=== PATIENT | female | born 1950 | race Caucasian/White ===

== ENCOUNTER → 2017-01-14 | Outpatient (CLI) | payer MEDICARE, OTHER ==
[~2017-01-14] MED LIST: METFORMIN1000 MG PO; MULTI VITAMINS1 TAB PO; SIMVASTATIN20 MG PO; TENORMIN25 M1 PO; TRAD5TAB1 PO
== END | disposition home or self-care (01) ==
LOC: RAD 11:52
DX: M25.562 Pain in left knee (principal)

== ENCOUNTER → 2017-03-05 | Outpatient (CLI) | payer MEDICARE, OTHER ==
[2017-03-05 11:47] LABS: BASO % 0.5 % (0.0-1.0); EOS % 0.5 % (1.0-4.0); HEMATOCRIT 43.6 % (37.0-47.0); HEMOGLOBIN 14.6 g/dl (12.0-16.0); LYMPH % 25.8 % (27.0-41.0); MEAN CELL VOLUME 84.2 fl (81.0-99.0); MEAN CORPUSCULAR HGB 28.2 pg (27.0-31.0); MEAN CORPUSCULAR HGB CONC 33.5 g/dl (33.0-37.0); MEAN PLATELET VOLUME 10.3 fl (9.6-12.3); MONO # 0.6 10*3/uL (0.1-1.0); MONO % 7.6 % (3.0-9.0); NEUT # 5.1 10*3/uL (2.3-7.9); NEUT % 65.3 % (47.0-73.0); PLATELET COUNT AUTOMATED 240 10*3/uL (130-400); RED BLOOD COUNT 5.18 10*6/uL (4.10-5.10); RED CELL DISTRI WIDTH 13.1 % (0-14.5); WHITE BLOOD COUNT 7.9 10*3/uL (4.8-10.8)
== END | disposition home or self-care (01) ==
LOC: LAB 11:19
PROVIDERS: Family Medicine
DX: I10 Essential (primary) hypertension (principal)

== ENCOUNTER → 2018-04-22 | Outpatient (CLI) | payer MEDICARE, OTHER ==
[2018-04-22 12:11] LABS: ALBUMIN 3.9 gm/dl (3.1-4.5); ALKALINE PHOSPHATASE 105 U/L (45-117); BUN 16 mg/dl (7-24); CHLORIDE 106 mmol/L (98-107); CHOLESTEROL 122 mg/dL (<200); CREATININE 0.81 mg/dL (0.55-1.02); FREE T4 1.15 ng/dl (0.76-1.46); HDL CHOLESTEROL 48 mg/dl (40-60); LDL CHOLESTEROL 47 mg/dL (9-159); POTASSIUM 3.8 mmol/L (3.5-5.1); SGOT/AST 59 IU/L (3-35); SGPT/ALT 72 U/L (12-78); SODIUM 139 mmol/L (136-145); TOTAL PROTEIN 7.4 gm/dL (6.4-8.2); TRIGLYCERIDES 136 mg/dl (<150); VLDL CHOLESTEROL 27 mg/dL (6-40)
[2018-04-22 12:28] LABS: BASO % 0.3 % (0.0-1.0); EOS % 0.5 % (1.0-4.0); HEMATOCRIT 40.2 % (37.0-47.0); HEMOGLOBIN 13.2 g/dl (12.0-16.0); LYMPH # 1.6 10*3/uL (1.3-4.4); LYMPH % 26.7 % (27.0-41.0); MEAN CORPUSCULAR HGB 28.6 pg (27.0-31.0); MEAN CORPUSCULAR HGB CONC 32.8 g/dl (33.0-37.0); MONO # 0.5 10*3/uL (0.1-1.0); MONO % 8.3 % (3.0-9.0); NEUT # 3.9 10*3/uL (2.3-7.9); NEUT % 63.7 % (47.0-73.0); PLATELET COUNT AUTOMATED 155 10*3/uL (130-400); RED BLOOD COUNT 4.62 10*6/uL (4.10-5.10); RED CELL DISTRI WIDTH 12.1 % (0-14.5)
== END | disposition home or self-care (01) ==
LOC: LAB 11:20
PROVIDERS: Family Medicine
DX: I10 Essential (primary) hypertension (principal); E11.9 Type 2 diabetes mellitus without complications; E78.5 Hyperlipidemia, unspecified; E55.9 Vitamin D deficiency, unspecified

== ENCOUNTER → 2018-09-19 | Outpatient (CLI) | payer MEDICARE, OTHER ==
[2018-09-19 18:21] LABS: BASO % 0.6 % (0.0-1.0); EOS # 0.1 10*3/uL (0.0-0.4); EOS % 0.9 % (1.0-4.0); LYMPH % 30.2 % (27.0-41.0); MEAN CELL VOLUME 86.1 fl (81.0-99.0); MEAN CORPUSCULAR HGB 28.7 pg (27.0-31.0); MEAN CORPUSCULAR HGB CONC 33.3 g/dl (33.0-37.0); MEAN PLATELET VOLUME 10.7 fl (9.6-12.3); MONO # 0.5 10*3/uL (0.1-1.0); MONO % 7.9 % (3.0-9.0); NEUT # 3.9 10*3/uL (2.3-7.9); NEUT % 60.1 % (47.0-73.0); PLATELET COUNT AUTOMATED 174 10*3/uL (130-400); RED BLOOD COUNT 4.53 10*6/uL (4.10-5.10); RED CELL DISTRI WIDTH 12.6 % (0-14.5); WHITE BLOOD COUNT 6.5 10*3/uL (4.8-10.8)
[2018-09-20 06:08] LABS: HEPATITIS B SURFACE AG Negative (Negative); HEPATITIS C VIRUS ANTIBODY <0.1 s/co (0.0-0.9)
[2018-09-20 08:14] LABS: RHEUMATOID ARTHRITIS FACTOR <10.0 IU/mL (0.0-13.9)
[2018-09-20 14:11] LABS: ANTI-RNP ANTIBODIES <0.2 AI (0.0-0.9)
[2018-09-20 22:07] LABS: CCP ANTIBODIES IGG/IGA 7 units (0-19)
[2018-09-21 00:05] LABS: LUPUS DRVVT 40.3 sec (0.0-47.0); LUPUS REFLEX INTERPRETATION Comment: (.); PTT-LA 33.4 sec (0.0-51.9)
[2018-09-23 16:10] LABS: HLA-B27 ANTIGEN Negative (.)
== END | disposition home or self-care (01) ==
LOC: LAB 16:54
PROVIDERS: Orthopaedic Surgery
DX: M25.50 Pain in unspecified joint (principal)

== ENCOUNTER → 2019-10-03 | Outpatient (CLI) | payer MEDICARE, OTHER | END | disposition home or self-care (01) | LOC: RAD 09:20 | DX: M40.47 Postural lordosis, lumbosacral region (principal); M25.552 Pain in left hip; M25.551 Pain in right hip ==

== ENCOUNTER → 2019-12-12 | Outpatient (CLI) | payer MEDICARE, OTHER ==
[~2019-12-12] MED LIST changes: +AMOXICILLIN500 M2 PO; +GOOD NEIGHBOR M25 M1 PO
[2019-12-12 16:46] LABS: BILIRUBIN NEGATIVE (NEGATIVE); CLARITY CLEAR (CLEAR); COLOR YELLOW (YELLOW); GLUCOSE NEGATIVE (NEGATIVE); KETONE TRACE (NEGATIVE); SPECIFIC GRAVITY 1.005 (1.005-1.030)
[2019-12-12 16:47] LABS: BASO % 0.6 % (0.0-1.0); BLOOD NEGATIVE (NEGATIVE); EOS # 0.1 10*3/uL (0.0-0.4); EOS % 1.5 % (1.0-4.0); HEMATOCRIT 41.3 % (37.0-47.0); HEMOGLOBIN 13.7 g/dl (12.0-16.0); LEUKO ESTERASE NEGATIVE (NEGATIVE); LYMPH # 1.7 10*3/uL (1.3-4.4); LYMPH % 25.3 % (27.0-41.0); MEAN CELL VOLUME 85.5 fl (81.0-99.0); MEAN CORPUSCULAR HGB 28.4 pg (27.0-31.0); MEAN CORPUSCULAR HGB CONC 33.2 g/dl (33.0-37.0); MEAN PLATELET VOLUME 10.2 fl (9.6-12.3); MONO # 0.5 10*3/uL (0.1-1.0); MONO % 8.1 % (3.0-9.0); NEUT # 4.2 10*3/uL (2.3-7.9); NEUT % 64.2 % (47.0-73.0); NITRITE NEGATIVE (NEGATIVE); PLATELET COUNT AUTOMATED 167 10*3/uL (130-400); RED BLOOD COUNT 4.83 10*6/uL (4.10-5.10); RED CELL DISTRI WIDTH 12.6 % (0-14.5); UROBILINOGEN 0.2 E.U./dl (0.2-1.0); WHITE BLOOD COUNT 6.5 10*3/uL (4.8-10.8)
[2019-12-12 16:57] LABS: BACTERIA TRACE; RBC 0-2 rbc/hpf (0-2)
[2019-12-12 16:58] LABS: ACT PARTIAL THROMBO TIME 25.3 SECONDS (20.0-32.1); INTERNATIONAL NORM RATIO 0.9 (2.0-3.5)
[2019-12-12 17:04] LABS: ALBUMIN 4.1 gm/dl (3.1-4.5); ALKALINE PHOSPHATASE 162 U/L (45-117); BUN 20 mg/dl (7-24); CHLORIDE 103 mmol/L (98-107); SGOT/AST 47 IU/L (3-35); SGPT/ALT 72 U/L (12-78); SODIUM 137 mmol/L (136-145); TOTAL PROTEIN 7.7 gm/dL (6.4-8.2)
== END | disposition home or self-care (01) ==
LOC: LAB 16:25
PROVIDERS: Orthopaedic Surgery
DX: I10 Essential (primary) hypertension (principal); E11.9 Type 2 diabetes mellitus without complications; M19.90 Unspecified osteoarthritis, unspecified site; M79.89 Other specified soft tissue disorders

== ENCOUNTER 2019-12-16 06:12 | Emergency (ER) | payer MEDICARE, OTHER ==
[~2019-12-16] VITALS: Ht 152.4 cm; Wt 73.5 kg
[~2019-12-16 06:12] MED LIST changes: -AMOXICILLIN500 M2 PO; -GOOD NEIGHBOR M25 M1 PO
[2019-12-16 07:39] LABS: BASO % 0.4 % (0.0-1.0); EOS # 0.1 10*3/uL (0.0-0.4); EOS % 0.9 % (1.0-4.0); HEMATOCRIT 42.3 % (37.0-47.0); HEMOGLOBIN 14.1 g/dl (12.0-16.0); LYMPH # 1.5 10*3/uL (1.3-4.4); LYMPH % 22.1 % (27.0-41.0); MEAN CELL VOLUME 84.9 fl (81.0-99.0); MEAN CORPUSCULAR HGB 28.3 pg (27.0-31.0); MEAN CORPUSCULAR HGB CONC 33.3 g/dl (33.0-37.0); MEAN PLATELET VOLUME 10.6 fl (9.6-12.3); MONO # 0.5 10*3/uL (0.1-1.0); MONO % 7.4 % (3.0-9.0); NEUT # 4.8 10*3/uL (2.3-7.9); NEUT % 69.1 % (47.0-73.0); PLATELET COUNT AUTOMATED 165 10*3/uL (130-400); RED BLOOD COUNT 4.98 10*6/uL (4.10-5.10); RED CELL DISTRI WIDTH 12.6 % (0-14.5); WHITE BLOOD COUNT 6.9 10*3/uL (4.8-10.8)
[2019-12-16 08:01] LABS: ALBUMIN 3.9 gm/dl (3.1-4.5); ALKALINE PHOSPHATASE 143 U/L (45-117); BUN 17 mg/dl (7-24); CHLORIDE 107 mmol/L (98-107); CREATININE 0.92 mg/dL (0.55-1.02); POTASSIUM 4.1 mmol/L (3.5-5.1); SGOT/AST 60 IU/L (3-35); SGPT/ALT 77 U/L (12-78); SODIUM 139 mmol/L (136-145); TOTAL PROTEIN 7.2 gm/dL (6.4-8.2)
[2019-12-16 08:03] LABS: ACT PARTIAL THROMBO TIME 23.3 SECONDS (20.0-32.1)
[2019-12-16 10:35] VITALS: BP 153/58
[2019-12-16] MEDS ORDERED: GOOD NEIGHBOR M25 M1 PO (12:10)
[2019-12-16] MEDS ORDERED: AMOXICILLIN500 M2 PO (12:10)
== END 2019-12-16 12:15 | disposition home or self-care (01) ==
LOC: ED 06:12
PROVIDERS: Emergency Medicine Emergency Medical Services
DX: H83.09 Labyrinthitis, unspecified ear (principal); J32.9 Chronic sinusitis, unspecified; Z88.2 Allergy status to sulfonamides; Z79.4 Long term (current) use of insulin; Z79.899 Other long term (current) drug therapy

== ENCOUNTER → 2020-04-18 | Outpatient (CLI) | payer MEDICARE, OTHER ==
[~2020-04-18] MED LIST changes: +AMOXICILLIN500 M2 PO; +GOOD NEIGHBOR M25 M1 PO
[2020-04-18 13:43] LABS: BASO % 0.4 % (0.0-1.0); EOS # 0.1 10*3/uL (0.0-0.4); EOS % 1.3 % (1.0-4.0); HEMATOCRIT 38.7 % (37.0-47.0); LYMPH # 1.5 10*3/uL (1.3-4.4); LYMPH % 29.2 % (27.0-41.0); MEAN CELL VOLUME 86.8 fl (81.0-99.0); MEAN CORPUSCULAR HGB 28.5 pg (27.0-31.0); MEAN CORPUSCULAR HGB CONC 32.8 g/dl (33.0-37.0); MEAN PLATELET VOLUME 10.7 fl (9.6-12.3); MONO # 0.5 10*3/uL (0.1-1.0); MONO % 8.6 % (3.0-9.0); NEUT # 3.2 10*3/uL (2.3-7.9); NEUT % 60.1 % (47.0-73.0); PLATELET COUNT AUTOMATED 127 10*3/uL (130-400); RED BLOOD COUNT 4.46 10*6/uL (4.10-5.10); RED CELL DISTRI WIDTH 12.9 % (0-14.5); WHITE BLOOD COUNT 5.2 10*3/uL (4.8-10.8)
[2020-04-18 14:10] LABS: ALBUMIN 3.4 gm/dl (3.1-4.5); ALKALINE PHOSPHATASE 134 U/L (45-117); BUN 18 mg/dl (7-24); CHLORIDE 110 mmol/L (98-107); CREATININE 1.03 mg/dL (0.55-1.02); SGOT/AST 58 IU/L (3-35); SGPT/ALT 70 U/L (12-78); SODIUM 141 mmol/L (136-145); TOTAL PROTEIN 6.7 gm/dL (6.4-8.2)
== END | disposition home or self-care (01) ==
LOC: LAB 12:53 → CARD 13:00
PROVIDERS: Family Medicine
DX: I25.10 Atherosclerotic heart disease of native coronary artery without angina pectoris (principal); H49.02 Third [oculomotor] nerve palsy, left eye; E11.9 Type 2 diabetes mellitus without complications; Z96.1 Presence of intraocular lens

== ENCOUNTER → 2020-05-09 | Outpatient (CLI) | payer MEDICARE, OTHER ==
[2020-05-09 14:16] LABS: BILIRUBIN NEGATIVE (NEGATIVE); BLOOD NEGATIVE (NEGATIVE); CLARITY SL CLOUDY (CLEAR); COLOR YELLOW (YELLOW); GLUCOSE NEGATIVE (NEGATIVE); KETONE NEGATIVE (NEGATIVE); LEUKO ESTERASE NEGATIVE (NEGATIVE); NITRITE NEGATIVE (NEGATIVE); UROBILINOGEN 0.2 E.U./dl (0.2-1.0)
[2020-05-09 14:38] LABS: BACTERIA 1+; MUCOUS 1+; WBC 0-2 wbc/hpf (0-5)
[2020-05-09 14:49] LABS: ALBUMIN 3.8 gm/dl (3.1-4.5); ALKALINE PHOSPHATASE 115 U/L (45-117); BUN 17 mg/dl (7-24); CHLORIDE 107 mmol/L (98-107); CREATININE 0.93 mg/dL (0.55-1.02); POTASSIUM 3.9 mmol/L (3.5-5.1); SGOT/AST 53 IU/L (3-35); SGPT/ALT 67 U/L (12-78); SODIUM 139 mmol/L (136-145); TOTAL PROTEIN 7.2 gm/dL (6.4-8.2)
[2020-05-10 10:07] LABS: CREATININE,URINE 83.6 mg/dL (Not Estab.)
== END | disposition home or self-care (01) ==
LOC: US 05-03 13:30 → LAB 13:19 → US 13:30
PROVIDERS: Internal Medicine Nephrology
DX: N18.3 Chronic kidney disease, stage 3 (moderate) (principal)

== ENCOUNTER → 2020-08-14 | Outpatient (CLI) | payer MEDICARE, OTHER ==
[2020-08-14 10:33] LABS: BASO % 0.5 % (0.0-1.0); EOS # 0.1 10*3/uL (0.0-0.4); EOS % 1.1 % (1.0-4.0); HEMATOCRIT 45.6 % (37.0-47.0); LYMPH # 1.8 10*3/uL (1.3-4.4); LYMPH % 32.1 % (27.0-41.0); MEAN CELL VOLUME 85.2 fl (81.0-99.0); MEAN CORPUSCULAR HGB CONC 32.9 g/dl (33.0-37.0); MEAN PLATELET VOLUME 10.7 fl (9.6-12.3); MONO # 0.5 10*3/uL (0.1-1.0); MONO % 8.5 % (3.0-9.0); NEUT # 3.3 10*3/uL (2.3-7.9); NEUT % 57.6 % (47.0-73.0); PLATELET COUNT AUTOMATED 127 10*3/uL (130-400); RED BLOOD COUNT 5.35 10*6/uL (4.10-5.10); RED CELL DISTRI WIDTH 12.8 % (0-14.5); WHITE BLOOD COUNT 5.7 10*3/uL (4.8-10.8)
[2020-08-14 10:57] LABS: ALBUMIN 3.8 gm/dl (3.1-4.5); BUN 14 mg/dl (7-24); CHLORIDE 105 mmol/L (98-107); POTASSIUM 4.1 mmol/L (3.5-5.1); SODIUM 139 mmol/L (136-145)
[2020-08-14 11:04] LABS: ALKALINE PHOSPHATASE 128 U/L (45-117); CHOLESTEROL 164 mg/dL (<200); CREATININE 0.99 mg/dL (0.55-1.02); FREE T4 1.09 ng/dl (0.76-1.46); HDL CHOLESTEROL 55 mg/dl (40-60); LDL CHOLESTEROL 73 mg/dL (9-159); SGOT/AST 54 IU/L (3-35); SGPT/ALT 60 U/L (12-78); TRIGLYCERIDES 178 mg/dl (<150); VLDL CHOLESTEROL 36 mg/dL (6-40)
== END | disposition home or self-care (01) ==
LOC: LAB 09:53 → MAMMO 10:30
PROVIDERS: ATTEND Family Medicine
DX: Z12.11 Encounter for screening for malignant neoplasm of colon (principal); Z12.31 Encounter for screening mammogram for malignant neoplasm of breast; I10 Essential (primary) hypertension; E78.5 Hyperlipidemia, unspecified; E11.9 Type 2 diabetes mellitus without complications

== ENCOUNTER → 2021-06-12 | Outpatient (CLI) | payer MEDICARE, OTHER | END | disposition home or self-care (01) | LOC: RESCLI 00:42 | PROVIDERS: ATTEND Internal Medicine | DX: E11.9 Type 2 diabetes mellitus without complications (principal); I10 Essential (primary) hypertension; E78.5 Hyperlipidemia, unspecified; L40.50 Arthropathic psoriasis, unspecified; Z79.4 Long term (current) use of insulin; Z79.899 Other long term (current) drug therapy; Z88.0 Allergy status to penicillin; Z98.51 Tubal ligation status ==

== ENCOUNTER → 2021-09-03 | Outpatient (CLI) | payer MEDICARE, OTHER | END | disposition home or self-care (01) | LOC: MAMMO 00:28 | PROVIDERS: ATTEND Family Medicine | DX: Z12.31 Encounter for screening mammogram for malignant neoplasm of breast (principal) ==

== ENCOUNTER → 2021-09-08 | Outpatient (CLI) | payer MEDICARE, OTHER ==
[2021-09-08 09:15] LABS: BASO % 0.6 % (0.0-1.0); BILIRUBIN 1+ (Negative); BLOOD Negative (Negative); CLARITY Cloudy (Clear); COLOR Dark Yellow (Yellow); EOS # 0.1 10*3/uL (0.0-0.4); EOS % 1.3 % (1.0-4.0); GLUCOSE Negative (Negative); HEMATOCRIT 42.8 % (37.0-47.0); KETONE Trace (Negative); LEUKO ESTERASE 2+ (Negative); LYMPH % 32.2 % (27.0-41.0); MEAN CELL VOLUME 85.6 fl (81.0-99.0); MEAN CORPUSCULAR HGB CONC 33.9 g/dl (33.0-37.0); MEAN PLATELET VOLUME 10.2 fl (9.6-12.3); MONO # 0.6 10*3/uL (0.1-1.0); MONO % 9.4 % (3.0-9.0); NEUT # 3.5 10*3/uL (2.3-7.9); NEUT % 56.3 % (47.0-73.0); NITRITE Negative (Negative); PLATELET COUNT AUTOMATED 168 10*3/uL (130-400); RED CELL DISTRI WIDTH 12.8 % (0-14.5); SPECIFIC GRAVITY 1.025 (1.001-1.030); WHITE BLOOD COUNT 6.3 10*3/uL (4.8-10.8)
[2021-09-08 09:32] LABS: ALBUMIN 3.5 gm/dl (3.1-4.5); BUN 13 mg/dl (7-24); CHLORIDE 107 mmol/L (98-107); POTASSIUM 3.9 mmol/L (3.5-5.1); SODIUM 137 mmol/L (136-145)
[2021-09-08 09:35] LABS: BACTERIA TRACE; MUCOUS 1+; WBC 31-40 wbc/hpf (0-5)
[2021-09-08 09:36] LABS: ALKALINE PHOSPHATASE 84 U/L (45-117); CREATININE 0.89 mg/dL (0.55-1.02); SGOT/AST 42 IU/L (3-35); SGPT/ALT 51 U/L (12-78); TOTAL PROTEIN 7.3 gm/dL (6.4-8.2)
== END | disposition home or self-care (01) ==
LOC: LAB 08:41
PROVIDERS: Student in an Organized Health Care Education/Training Program; ATTEND Internal Medicine
DX: E11.65 Type 2 diabetes mellitus with hyperglycemia (principal); E78.5 Hyperlipidemia, unspecified; E55.9 Vitamin D deficiency, unspecified

== ENCOUNTER → 2021-11-12 | Outpatient (CLI) | payer MEDICARE, OTHER | END | disposition home or self-care (01) | LOC: RESCLI 00:34 | PROVIDERS: ATTEND Internal Medicine | DX: E11.9 Type 2 diabetes mellitus without complications (principal); I10 Essential (primary) hypertension; E78.5 Hyperlipidemia, unspecified; L40.50 Arthropathic psoriasis, unspecified; Z13.820 Encounter for screening for osteoporosis; Z79.899 Other long term (current) drug therapy; Z98.890 Other specified postprocedural states; Z88.5 Allergy status to narcotic agent ==

== ENCOUNTER → 2021-11-27 | Outpatient (CLI) | payer MEDICARE, OTHER | END | disposition home or self-care (01) | LOC: RAD 13:05 | PROVIDERS: ATTEND Internal Medicine | DX: Z13.820 Encounter for screening for osteoporosis (principal); M85.88 Other specified disorders of bone density and structure, other site ==

== ENCOUNTER → 2021-12-10 | Outpatient (CLI) | payer MEDICARE, OTHER | END | disposition home or self-care (01) | LOC: RESCLI 06:47 | PROVIDERS: ATTEND Student in an Organized Health Care Education/Training Program | DX: H00.012 Hordeolum externum right lower eyelid (principal); I10 Essential (primary) hypertension; E11.9 Type 2 diabetes mellitus without complications; E78.00 Pure hypercholesterolemia, unspecified; Z98.890 Other specified postprocedural states; Z88.2 Allergy status to sulfonamides; Z79.899 Other long term (current) drug therapy ==

== ENCOUNTER → 2022-02-03 | Outpatient (CLI) | payer MEDICARE, OTHER ==
[2022-02-03 09:38] LABS: BILIRUBIN Negative (Negative); BLOOD Negative (Negative); CLARITY Clear (Clear); COLOR Yellow (Yellow); GLUCOSE 3+ (Negative); KETONE Trace (Negative); LEUKO ESTERASE Negative (Negative); NITRITE Negative (Negative); SPECIFIC GRAVITY >= 1.030 (1.001-1.030)
[2022-02-03 09:57] LABS: ALKALINE PHOSPHATASE 86 U/L (45-117); BUN 18 mg/dl (7-24); CHLORIDE 107 mmol/L (98-107); CHOLESTEROL 142 mg/dL (<200); CREATININE 0.87 mg/dL (0.55-1.02); LDL CHOLESTEROL 60 mg/dL (9-159); POTASSIUM 3.9 mmol/L (3.5-5.1); SGOT/AST 32 IU/L (3-35); SGPT/ALT 39 U/L (12-78); SODIUM 139 mmol/L (136-145); TOTAL PROTEIN 7.4 gm/dL (6.4-8.2); TRIGLYCERIDES 148 mg/dl (<150)
[2022-02-03 10:53] LABS: BACTERIA 1+; MUCOUS 1+; WBC 16-20 wbc/hpf (0-5)
== END | disposition home or self-care (01) ==
LOC: LAB 08:53
PROVIDERS: ATTEND Internal Medicine
DX: E11.69 Type 2 diabetes mellitus with other specified complication (principal); E78.5 Hyperlipidemia, unspecified; E55.9 Vitamin D deficiency, unspecified

== ENCOUNTER → 2022-03-18 | Outpatient (CLI) | payer MEDICARE, OTHER ==
[2022-03-18 09:42] LABS: FREE T4 1.05 ng/dl (0.76-1.46)
== END | disposition home or self-care (01) ==
LOC: RESCLI 00:33
PROVIDERS: Internal Medicine; ATTEND Student in an Organized Health Care Education/Training Program
DX: R53.83 Other fatigue (principal)

== ENCOUNTER → 2022-05-26 | Outpatient (CLI) | payer MEDICARE, OTHER ==
[2022-05-26 11:55] LABS: BASO # 0.1 10*3/uL (0.0-0.1); BASO % 0.6 % (0.0-1.0); EOS % 0.5 % (1.0-4.0); HEMATOCRIT 48.3 % (37.0-47.0); LYMPH # 1.9 10*3/uL (1.3-4.4); LYMPH % 23.7 % (27.0-41.0); MEAN CORPUSCULAR HGB 28.2 pg (27.0-31.0); MEAN CORPUSCULAR HGB CONC 33.1 g/dl (33.0-37.0); MEAN PLATELET VOLUME 10.6 fl (9.6-12.3); MONO # 0.7 10*3/uL (0.1-1.0); MONO % 8.8 % (3.0-9.0); NEUT # 5.2 10*3/uL (2.3-7.9); NEUT % 65.8 % (47.0-73.0); PLATELET COUNT AUTOMATED 200 10*3/uL (130-400); RED BLOOD COUNT 5.68 10*6/uL (4.10-5.10); RED CELL DISTRI WIDTH 12.9 % (0-14.5); WHITE BLOOD COUNT 7.9 10*3/uL (4.8-10.8)
[2022-05-26 12:05] LABS: ACT PARTIAL THROMBO TIME 26.4 SECONDS (20.0-32.1)
[2022-05-26 12:17] LABS: ALKALINE PHOSPHATASE 94 U/L (45-117); BUN 16 mg/dl (7-24); CHLORIDE 110 mmol/L (98-107); CREATININE 0.94 mg/dL (0.55-1.02); POTASSIUM 4.1 mmol/L (3.5-5.1); SGOT/AST 31 IU/L (3-35); SGPT/ALT 38 U/L (12-78); SODIUM 143 mmol/L (136-145); TOTAL PROTEIN 7.2 gm/dL (6.4-8.2)
[2022-05-26 17:43] LABS: BILIRUBIN Negative (Negative); BLOOD Negative (Negative); CLARITY Clear (Clear); COLOR Yellow (Yellow); GLUCOSE 3+ (Negative); KETONE Negative (Negative); LEUKO ESTERASE Negative (Negative); NITRITE Negative (Negative); PH 5.5 (4.5-8.0); SPECIFIC GRAVITY >= 1.030 (1.001-1.030)
[2022-05-26 17:50] LABS: WBC 0-2 wbc/hpf (0-5)
[2022-05-26 17:51] LABS: BACTERIA TRACE; EPITHELIAL CELLS 0-2
== END ==
LOC: RESCLI 09:07 → LAB 09:07
PROVIDERS: Orthopaedic Surgery; ATTEND Student in an Organized Health Care Education/Training Program
DX: E11.9 Type 2 diabetes mellitus without complications (principal); E55.9 Vitamin D deficiency, unspecified; I10 Essential (primary) hypertension; E78.5 Hyperlipidemia, unspecified; M17.11 Unilateral primary osteoarthritis, right knee; R94.31 Abnormal electrocardiogram [ECG] [EKG]; I44.4 Left anterior fascicular block; L40.50 Arthropathic psoriasis, unspecified; F41.9 Anxiety disorder, unspecified; Z79.899 Other long term (current) drug therapy; Z88.8 Allergy status to other drugs, medicaments and biological substances

== ENCOUNTER → 2022-06-10 | Outpatient (CLI) | payer MEDICARE, OTHER | END | disposition home or self-care (01) | LOC: US 14:14 | PROVIDERS: ATTEND Orthopaedic Surgery | DX: M71.21 Synovial cyst of popliteal space [Baker], right knee (principal) ==

== ENCOUNTER → 2022-07-07 | Outpatient (CLI) | payer MEDICARE, OTHER ==
[2022-07-07 09:15] LABS: BILIRUBIN Negative (Negative); BLOOD Negative (Negative); CLARITY Cloudy (Clear); COLOR Yellow (Yellow); GLUCOSE 3+ (Negative); KETONE Trace (Negative); LEUKO ESTERASE 1+ (Negative); NITRITE Negative (Negative); PH 5.5 (4.5-8.0); SPECIFIC GRAVITY >= 1.030 (1.001-1.030)
[2022-07-07 09:25] LABS: ALKALINE PHOSPHATASE 93 U/L (45-117); BUN 13 mg/dl (7-24); CHLORIDE 109 mmol/L (98-107); CHOLESTEROL 128 mg/dL (<200); CREATININE 0.97 mg/dL (0.55-1.02); LDL CHOLESTEROL 48 mg/dL (9-159); POTASSIUM 3.9 mmol/L (3.5-5.1); SGOT/AST 25 IU/L (3-35); SGPT/ALT 33 U/L (12-78); SODIUM 139 mmol/L (136-145); TRIGLYCERIDES 123 mg/dl (<150)
[2022-07-07 11:14] LABS: BACTERIA 2+; EPITHELIAL CELLS TNTC; RBC 0-2 rbc/hpf (0-2); WBC TNTC wbc/hpf (0-5); YEAST TRACE
== END | disposition home or self-care (01) ==
LOC: LAB 08:47
PROVIDERS: ATTEND Internal Medicine
DX: K59.00 Constipation, unspecified (principal); K64.8 Other hemorrhoids; E78.5 Hyperlipidemia, unspecified; E11.9 Type 2 diabetes mellitus without complications; Z79.899 Other long term (current) drug therapy; Z88.8 Allergy status to other drugs, medicaments and biological substances; E55.9 Vitamin D deficiency, unspecified

== ENCOUNTER → 2022-07-20 | Outpatient (CLI) | payer MEDICARE, OTHER | END | disposition home or self-care (01) | LOC: CARD 09:16 | PROVIDERS: ATTEND Internal Medicine Cardiovascular Disease | DX: I08.0 Rheumatic disorders of both mitral and aortic valves (principal); R94.31 Abnormal electrocardiogram [ECG] [EKG] ==

== ENCOUNTER → 2022-07-30 | Outpatient (CLI) | payer MEDICARE, OTHER | END | disposition home or self-care (01) | LOC: LAB 09:23 | PROVIDERS: ATTEND Orthopaedic Surgery | DX: N39.0 Urinary tract infection, site not specified (principal) ==

== ENCOUNTER → 2022-08-26 | Outpatient (CLI) | payer MEDICARE, OTHER | END | disposition home or self-care (01) | LOC: MRI 10:29 | PROVIDERS: ATTEND Internal Medicine | DX: I67.82 Cerebral ischemia (principal) ==

== ENCOUNTER → 2022-10-06 | Outpatient (CLI) | payer MEDICARE, OTHER | END | disposition home or self-care (01) | LOC: US 01:56 | PROVIDERS: ATTEND Internal Medicine | DX: I65.23 Occlusion and stenosis of bilateral carotid arteries (principal) ==

== ENCOUNTER → 2022-10-08 | Outpatient (CLI) | payer MEDICARE, OTHER | END | disposition home or self-care (01) | LOC: MAMMO 00:18 | PROVIDERS: ATTEND Internal Medicine | DX: N63.20 Unspecified lump in the left breast, unspecified quadrant (principal); N63.10 Unspecified lump in the right breast, unspecified quadrant; N60.02 Solitary cyst of left breast; R92.2 Inconclusive mammogram; R92.1 Mammographic calcification found on diagnostic imaging of breast; R92.8 Other abnormal and inconclusive findings on diagnostic imaging of breast ==

== ENCOUNTER → 2022-11-17 | Outpatient (CLI) | payer MEDICARE, OTHER ==
[2022-11-17 09:21] LABS: ALKALINE PHOSPHATASE 96 U/L (46-116); BUN 23 mg/dl (9-23); CHLORIDE 105 mmol/L (98-107); CHOLESTEROL 155 mg/dL (<200); FREE T4 1.41 ng/dl (0.89-1.76); LDL CHOLESTEROL 70 mg/dL (9-159); POTASSIUM 4.2 mmol/L (3.4-5.1); SGPT/ALT 36 U/L (10-49); THYROID STIM HORMONE (HS) 0.754 uIU/ml (0.550-4.780); TOTAL PROTEIN 7.4 gm/dL (6.0-8.0); TRIGLYCERIDES 104 mg/dl (<150)
[2022-11-17 10:21] LABS: BILIRUBIN Negative (Negative); BLOOD Negative (Negative); CLARITY Clear (Clear); COLOR Yellow (Yellow); GLUCOSE 3+ (Negative); KETONE Negative (Negative); LEUKO ESTERASE Negative (Negative); NITRITE Negative (Negative); PH 5.5 (4.5-8.0); SPECIFIC GRAVITY >= 1.030 (1.001-1.030); UROBILINOGEN 0.2 E.U./dl (0.0-1.0)
[2022-11-17 10:35] LABS: BACTERIA TRACE; EPITHELIAL CELLS 0-2; WBC 0-2 wbc/hpf (0-5)
[2022-11-18 04:06] LABS: THYROID PEROXIDASE (TPO) AB 11 IU/mL (0-34)
[2022-11-18 22:06] LABS: THYROGLOBULIN ANTIBODY <1.0 IU/mL (0.0-0.9)
== END | disposition home or self-care (01) ==
LOC: LAB 08:25
PROVIDERS: ATTEND Internal Medicine
DX: E11.9 Type 2 diabetes mellitus without complications (principal); E55.9 Vitamin D deficiency, unspecified; E78.5 Hyperlipidemia, unspecified

== ENCOUNTER → 2022-12-21 | Outpatient (CLI) | payer MEDICARE, OTHER | END | disposition home or self-care (01) | LOC: RESCLI 01:11 | PROVIDERS: ATTEND Family Medicine | DX: E11.9 Type 2 diabetes mellitus without complications (principal); E78.00 Pure hypercholesterolemia, unspecified; K59.00 Constipation, unspecified; F41.9 Anxiety disorder, unspecified; Z82.49 Family history of ischemic heart disease and other diseases of the circulatory system; Z98.890 Other specified postprocedural states; Z88.2 Allergy status to sulfonamides; Z79.899 Other long term (current) drug therapy ==

== ENCOUNTER → 2023-04-08 | Outpatient (CLI) | payer MEDICARE, OTHER ==
[2023-04-08 08:08] LABS: BASO % 0.5 % (0.0-1.0); EOS # 0.1 10*3/uL (0.0-0.4); EOS % 1.4 % (1.0-4.0); HEMATOCRIT 48.6 % (37.0-47.0); LYMPH # 1.4 10*3/uL (1.3-4.4); LYMPH % 24.8 % (27.0-41.0); MEAN CELL VOLUME 88.8 fl (81.0-99.0); MEAN CORPUSCULAR HGB 28.5 pg (27.0-31.0); MEAN CORPUSCULAR HGB CONC 32.1 g/dl (33.0-37.0); MEAN PLATELET VOLUME 10.1 fl (9.6-12.3); MONO # 0.5 10*3/uL (0.1-1.0); MONO % 9.7 % (3.0-9.0); NEUT # 3.5 10*3/uL (2.3-7.9); NEUT % 63.2 % (47.0-73.0); PLATELET COUNT AUTOMATED 135 10*3/uL (130-400); RED BLOOD COUNT 5.47 10*6/uL (4.10-5.10); RED CELL DISTRI WIDTH 13.2 % (0-14.5); WHITE BLOOD COUNT 5.6 10*3/uL (4.8-10.8)
[2023-04-08 08:45] LABS: BILIRUBIN Negative (Negative); BLOOD Negative (Negative); CLARITY Clear (Clear); COLOR Yellow (Yellow); GLUCOSE 3+ (Negative); KETONE Negative (Negative); LEUKO ESTERASE Negative (Negative); NITRITE Negative (Negative); PH 5.5 (4.5-8.0); SPECIFIC GRAVITY >= 1.030 (1.001-1.030)
[2023-04-08 08:51] LABS: ALKALINE PHOSPHATASE 93 U/L (46-116); BUN 11 mg/dl (9-23); CHLORIDE 106 mmol/L (98-107); CHOLESTEROL 160 mg/dL (<200); FREE T4 1.14 ng/dl (0.89-1.76); LDL CHOLESTEROL 71 mg/dL (9-159); SGPT/ALT 39 U/L (10-49); TRIGLYCERIDES 121 mg/dl (<150)
[2023-04-08 10:17] LABS: BACTERIA TRACE
[2023-04-09 08:09] LABS: THYROID PEROXIDASE (TPO) AB <9 IU/mL (0-34)
[2023-04-09 15:07] LABS: THYROGLOBULIN ANTIBODY <1.0 IU/mL (0.0-0.9)
== END | disposition home or self-care (01) ==
LOC: LAB 01:32
PROVIDERS: Internal Medicine; ATTEND Internal Medicine
DX: E11.9 Type 2 diabetes mellitus without complications (principal); E03.9 Hypothyroidism, unspecified; E55.9 Vitamin D deficiency, unspecified; E78.5 Hyperlipidemia, unspecified; R41.89 Other symptoms and signs involving cognitive functions and awareness

== ENCOUNTER → 2023-09-10 | Outpatient (CLI) | payer MEDICARE, OTHER ==
[2023-09-10 08:33] LABS: ALKALINE PHOSPHATASE 114 U/L (46-116); BUN 15 mg/dl (9-23); CHLORIDE 107 mmol/L (98-107); CHOLESTEROL 133 mg/dL (<200); FREE T4 1.24 ng/dl (0.89-1.76); LDL CHOLESTEROL 49 mg/dL (9-159); POTASSIUM 4.1 mmol/L (3.4-5.1); SGPT/ALT 35 U/L (5-49); TOTAL PROTEIN 6.9 gm/dL (6.0-8.0); TRIGLYCERIDES 120 mg/dl (<150)
[2023-09-10 09:30] LABS: BILIRUBIN Negative (Negative); BLOOD Negative (Negative); CLARITY Clear (Clear); COLOR Yellow (Yellow); GLUCOSE 3+ (Negative); KETONE Negative (Negative); LEUKO ESTERASE Negative (Negative); NITRITE Negative (Negative); SPECIFIC GRAVITY >= 1.030 (1.001-1.030)
== END | disposition home or self-care (01) ==
LOC: LAB 01:23
PROVIDERS: ATTEND Internal Medicine
DX: E11.65 Type 2 diabetes mellitus with hyperglycemia (principal); E55.9 Vitamin D deficiency, unspecified; E78.5 Hyperlipidemia, unspecified; E03.9 Hypothyroidism, unspecified

== ENCOUNTER → 2023-12-09 | Outpatient (CLI) | payer MEDICARE, OTHER | END | disposition home or self-care (01) | LOC: RESCLI 00:53 | PROVIDERS: ATTEND Family Medicine | DX: F41.9 Anxiety disorder, unspecified (principal); I10 Essential (primary) hypertension; L40.50 Arthropathic psoriasis, unspecified; K64.8 Other hemorrhoids; E03.9 Hypothyroidism, unspecified; E55.9 Vitamin D deficiency, unspecified; E11.9 Type 2 diabetes mellitus without complications; J30.9 Allergic rhinitis, unspecified; E78.5 Hyperlipidemia, unspecified; Z98.890 Other specified postprocedural states; Z82.49 Family history of ischemic heart disease and other diseases of the circulatory system; Z88.2 Allergy status to sulfonamides; Z79.899 Other long term (current) drug therapy ==

== ENCOUNTER → 2024-01-26 | Outpatient (CLI) | payer MEDICARE, OTHER ==
[2024-01-26 07:28] LABS: BILIRUBIN Negative (Negative); BLOOD Negative (Negative); CLARITY Clear (Clear); COLOR Yellow (Yellow); GLUCOSE 3+ (Negative); KETONE Negative (Negative); LEUKO ESTERASE Negative (Negative); NITRITE Negative (Negative); PH 5.5 (4.5-8.0); SPECIFIC GRAVITY >= 1.030 (1.001-1.030)
[2024-01-26 07:48] LABS: BACTERIA TRACE
[2024-01-26 08:03] LABS: ALKALINE PHOSPHATASE 95 U/L (46-116); BUN 8 mg/dl (9-23); CHLORIDE 107 mmol/L (98-107); CHOLESTEROL 113 mg/dL (<200); FREE T4 1.16 ng/dl (0.89-1.76); LDL CHOLESTEROL 42 mg/dL (9-159); POTASSIUM 3.9 mmol/L (3.4-5.1); SGPT/ALT 46 U/L (5-49); TOTAL PROTEIN 6.8 gm/dL (6.0-8.0); TRIGLYCERIDES 97 mg/dl (<150)
== END | disposition home or self-care (01) ==
LOC: LAB 05:23
PROVIDERS: ATTEND Internal Medicine
DX: E11.9 Type 2 diabetes mellitus without complications (principal); E03.9 Hypothyroidism, unspecified; E55.9 Vitamin D deficiency, unspecified; E78.5 Hyperlipidemia, unspecified

== ENCOUNTER → 2024-07-17 | Outpatient (CLI) | payer MEDICARE, OTHER ==
[2024-07-17 08:23] LABS: BILIRUBIN Negative (Negative); BLOOD Negative (Negative); CLARITY Clear (Clear); COLOR Yellow (Yellow); GLUCOSE Negative (Negative); KETONE Negative (Negative); LEUKO ESTERASE 1+ (Negative); NITRITE Negative (Negative); PH 5.5 (4.5-8.0); SPECIFIC GRAVITY 1.015 (1.001-1.030)
[2024-07-17 08:44] LABS: FREE T4 1.29 ng/dl (0.89-1.76); POTASSIUM 4.2 mmol/L (3.4-5.1); TOTAL PROTEIN 6.7 gm/dL (6.0-8.0)
[2024-07-17 11:46] LABS: BACTERIA 2+
== END | disposition home or self-care (01) ==
LOC: LAB 07:33
PROVIDERS: ATTEND Internal Medicine
DX: E11.9 Type 2 diabetes mellitus without complications (principal); E03.9 Hypothyroidism, unspecified; E55.9 Vitamin D deficiency, unspecified; E78.5 Hyperlipidemia, unspecified

== ENCOUNTER → 2024-12-12 | Outpatient (CLI) | payer MEDICARE, OTHER ==
[2024-12-12 07:50] LABS: BILIRUBIN Negative (Negative); BLOOD Negative (Negative); CLARITY Cloudy (Clear); COLOR Yellow (Yellow); GLUCOSE Negative (Negative); KETONE Negative (Negative); LEUKO ESTERASE 1+ (Negative); NITRITE Negative (Negative); SPECIFIC GRAVITY 1.025 (1.001-1.030)
[2024-12-12 08:11] LABS: ALKALINE PHOSPHATASE 102 U/L (46-116); BUN 19 mg/dl (9-23); CHLORIDE 107 mmol/L (98-107); CHOLESTEROL 129 mg/dL (<200); FREE T4 1.19 ng/dl (0.89-1.76); LDL CHOLESTEROL 56 mg/dL (9-159); SGPT/ALT 36 U/L (5-49); TOTAL PROTEIN 6.6 gm/dL (6.0-8.0); TRIGLYCERIDES 115 mg/dl (<150)
[2024-12-12 08:39] LABS: BACTERIA 1+; RBC 0-2 rbc/hpf (0-2)
== END | disposition home or self-care (01) ==
LOC: LAB 07:14
PROVIDERS: ATTEND Internal Medicine
DX: E11.9 Type 2 diabetes mellitus without complications (principal); E55.9 Vitamin D deficiency, unspecified; E78.5 Hyperlipidemia, unspecified; E03.9 Hypothyroidism, unspecified

== ENCOUNTER → 2025-03-15 | Outpatient (CLI) | payer MEDICARE, OTHER | END | disposition home or self-care (01) | LOC: MAMMO 00:49 | PROVIDERS: ATTEND Internal Medicine | DX: Z12.31 Encounter for screening mammogram for malignant neoplasm of breast (principal); R92.323 Mammographic fibroglandular density, bilateral breasts ==

== ENCOUNTER → 2025-04-03 | Outpatient (CLI) | payer MEDICARE, OTHER ==
[2025-04-03 09:22] LABS: ALKALINE PHOSPHATASE 97 U/L (46-116); BUN 16 mg/dl (9-23); CHLORIDE 106 mmol/L (98-107); CHOLESTEROL 120 mg/dL (<200); LDL CHOLESTEROL 48 mg/dL (9-159); SGPT/ALT 45 U/L (5-49); TOTAL PROTEIN 6.3 gm/dL (6.0-8.0); TRIGLYCERIDES 84 mg/dl (<150)
== END | disposition home or self-care (01) ==
LOC: LAB 07:53
PROVIDERS: ATTEND Internal Medicine
DX: E11.9 Type 2 diabetes mellitus without complications (principal); E55.9 Vitamin D deficiency, unspecified; E78.5 Hyperlipidemia, unspecified; E03.9 Hypothyroidism, unspecified

== ENCOUNTER → 2025-05-23 | Outpatient (CLI) | payer MEDICARE, OTHER | END | disposition home or self-care (01) | LOC: RAD 12:24 | PROVIDERS: ATTEND Internal Medicine | DX: M17.12 Unilateral primary osteoarthritis, left knee (principal); M77.32 Calcaneal spur, left foot; M25.562 Pain in left knee ==

== ENCOUNTER → 2025-07-31 | Outpatient (CLI) | payer MEDICARE, OTHER ==
[2025-07-31 07:25] LABS: BASO # 0.0 10*3/uL (0.0-0.1); BASO % 0.4 % (0.0-1.0); EOS # 0.1 10*3/uL (0.0-0.4); EOS % 1.2 % (1.0-4.0); MEAN CELL VOLUME 88.6 fl (81.0-99.0); MEAN CORPUSCULAR HGB 29.6 pg (27.0-31.0); MEAN PLATELET VOLUME 10.2 fl (9.6-12.3); MONO # 0.5 10*3/uL (0.1-1.0); MONO % 8.0 % (3.0-9.0); NEUT # 3.8 10*3/uL (2.3-7.9); NEUT % 66.9 % (47.0-73.0); NUCLEATED RED BLOOD CELL 0.0 % (0.0-0.0); NUCLEATED RED BLOOD CELL 0.0 10*3/uL (0.0-0.0); PLATELET COUNT AUTOMATED 153 10*3/uL (130-400); RED CELL DISTRI WIDTH 13.3 % (0-14.5)
[2025-07-31 09:03] LABS: VITAMIN D, 25-HYDROXY 47.4 ng/mL (30-100)
[2025-07-31 09:04] LABS: BUN 20.0 mg/dl (9-23); FREE T4 1.49 ng/dl (0.89-1.76); LDL CHOLESTEROL 52.0 mg/dL (9-159); SGPT/ALT 46.0 U/L (5-49)
== END | disposition home or self-care (01) ==
LOC: LAB 02:45
PROVIDERS: ATTEND Internal Medicine
DX: I10 Essential (primary) hypertension (principal); E11.65 Type 2 diabetes mellitus with hyperglycemia; E03.9 Hypothyroidism, unspecified; I67.89 Other cerebrovascular disease; L40.9 Psoriasis, unspecified; R19.7 Diarrhea, unspecified; R53.83 Other fatigue; E55.9 Vitamin D deficiency, unspecified; E53.9 Vitamin B deficiency, unspecified

== ENCOUNTER → 2025-08-28 | Outpatient (CLI) | payer MEDICARE, OTHER ==
[2025-08-28 08:59] LABS: BILIRUBIN Negative (Negative); BLOOD Negative (Negative); CLARITY Clear (Clear); COLOR Yellow (Yellow); KETONE Negative (Negative); LEUKO ESTERASE Negative (Negative); NITRITE Negative (Negative); PH 5.0 (4.5-8.0); SPECIFIC GRAVITY 1.010 (1.001-1.030); UROBILINOGEN 0.2 E.U./dl (0.0-1.0)
[2025-08-28 09:14] LABS: BUN 22 mg/dl (9-23); FREE T4 1.45 ng/dl (0.89-1.76); LDL CHOLESTEROL 62 mg/dL (9-159); SGPT/ALT 51 U/L (5-49)
[2025-08-28 10:17] LABS: RBC 0-2 rbc/hpf (0-2)
[2025-08-28 10:18] LABS: BACTERIA TRACE
== END | disposition home or self-care (01) ==
LOC: LAB 04:42 → US 10:30
PROVIDERS: Internal Medicine; ATTEND Internal Medicine
DX: N28.1 Cyst of kidney, acquired (principal); E55.9 Vitamin D deficiency, unspecified; E03.9 Hypothyroidism, unspecified; E11.9 Type 2 diabetes mellitus without complications; E78.5 Hyperlipidemia, unspecified

== ENCOUNTER → 2025-09-06 | Outpatient (CLI) | payer MEDICARE, OTHER | END | disposition home or self-care (01) | LOC: LAB 01:54 | PROVIDERS: ATTEND Internal Medicine | DX: E34.9 Endocrine disorder, unspecified (principal); Z79.899 Other long term (current) drug therapy ==

== ENCOUNTER 2025-09-25 07:28 | Emergency (ER) | payer MEDICARE, OTHER ==
[~2025-09-25] VITALS: Ht 152.4 cm; Wt 86.6 kg
[2025-09-25 07:37] VITALS: BP 116/66
[2025-09-25] MEDS ORDERED: PROCTOZONE-HC30 GM T (10:31)
== END 2025-09-25 10:39 | disposition home or self-care (01) ==
LOC: ED 07:28
DX: L40.8 Other psoriasis (principal); E11.9 Type 2 diabetes mellitus without complications; I10 Essential (primary) hypertension; J45.909 Unspecified asthma, uncomplicated; Z88.2 Allergy status to sulfonamides

== ENCOUNTER → 2025-09-26 | Outpatient (CLI) | payer MEDICARE, OTHER ==
[~2025-09-26] MED LIST changes: +PROCTOZONE-HC30 GM T
== END | disposition home or self-care (01) ==
LOC: LAB 09:40
PROVIDERS: ATTEND Emergency Medicine
DX: B82.9 Intestinal parasitism, unspecified (principal)